=== PATIENT | female | born 1940 | race Caucasian/White ===

== ENCOUNTER 2016-06-20 12:05 | Emergency (ER) | payer OTHER ==
--- NOTE | 2016-06-20 12:44 | PROVIDER DOCUMENTATION ---
HPI-Syncope/Dizziness - General Chief Complaint: Fall Stated Complaint: Fall Time Seen by Provider: 06/20/16 12:10 Source: patient Allergies/Adverse Reactions: Patient Allergies Allergy/AdvReac Type Severity Reaction Status Date / Time No Known Allergies Allergy Verified 06/20/16 12:13 Home Medications: Home Medication List Medication Instructions Recorded Confirmed Last Taken Type Esomeprazole Magnesium [Nexium 1 cap PO DAILY 11/11/15 11/11/15 Unknown History 24Hr] Estrogens, Conjugated [Premarin] 0.45 mg PO DAILY 11/11/15 11/11/15 Unknown History Perphenazine/Amitriptyline HCl 1 tab PO BID 11/11/15 11/11/15 Unknown History [Perphen-Amitrip 2 mg-25 mg Tab] Ranolazine E.r. [Ranexa] 500 mg PO BID 11/11/15 11/11/15 Unknown History SIMVAstatin [Zocor] 40 mg PO DAILY 11/11/15 11/11/15 Unknown History Tramadol [Ultram] 50 mg PO Q8H PRN PRN #30 tablet 11/11/15 Unknown Rx Venlafaxine E.r. [Effexor Xr] 37.5 mg PO BID 11/11/15 11/11/15 Unknown History Zolpidem Tartrate [Zolpidem 12.5 mg PO QHS 11/11/15 11/11/15 Unknown History Tartrate ER] Ciprofloxacin [Cipro] 250 mg PO BID #20 tablet 11/17/15 Unknown Rx Phenazopyridine HCl [Pyridium] 100 mg PO BID #20 tablet 11/17/15 Unknown Rx Meloxicam [Mobic] 15 mg PO DAILY PRN #30 tablet 11/20/15 Unknown Rx Tramadol HCl [Ultram] 50 mg PO Q6H PRN PRN #20 tablet 11/20/15 Unknown Rx - History of Present Illness-Syncope/Dizzy Nature of Presenting Problem: Pt is a 76 yof who came to the ED with a cc of falling. Pt reports she drove to the bank and when she got inside she started feeling dizzy. Pt reports she fell down and tried to grab something but was unable to. Pt reports they had to help her off of the floor. Pt reports that she has fell three times this week with the same starting symptom: dizziness. Pt denies that she is in any pain. Prior Episodes: reports: recent history Onset/Duration: reports: just prior to arrival Timing: reports: still present Position/Activity at time of episode: reports: standing Symptoms prior to episode: reports: lightheaded Context: reports: collapsed Loss of Consciousness: no loss of consciousness Current Symptoms: reports: dizzy Similar symptoms previously: reports: workup for same problem Recently Seen Here or By Another Healthcare Provider: Yes - Dizziness Severity in ED: reports: mild Dizziness Related Current/Associated Symptoms: reports: dizzy, syncope Any recent trauma/injury?: reports: minor Patient usually:: reports: uses a cane Review of Systems - Adult - REVIEW OF SYSTEMS - ADULT Constitutional: denies: chills, fever Eyes: denies: decreased vision, double vision Ears, Nose, Mouth & Throat: reports: no symptoms reported Cardiovascular: reports: no symptoms reported Respiratory: reports: no symptoms reported Gastrointestinal: reports: no symptoms reported Genitourinary: reports: no symptoms reported Musculoskeletal: denies: bone pain, joint pain Integumentary: reports: other (left elbow abrasion) Neurological: reports: syncope. denies: numbness, seizure Psychiatric: reports: no symptoms reported Endocrine: reports: no symptoms reported Hematologic/Lymphatic: reports: no symptoms reported Allergic/Immunologic: reports: no symptoms reported All Other Systems: Reviewed and Negative Past History - Adult - PAST MEDICAL HISTORY-ADULT Review of Records: reports: Old Records Reviewed, Nursing Assessment Review Major Childhood Illnesses: reports: denies history Cardiovascular: reports: hyperlipidemia, other (stents) Respiratory: reports: denies history Gastrointestinal: reports: GERD, IBS Obstetrical/Gynecological: reports: denies history Genitourinary: reports: denies history Musculoskeletal: reports: denies history Neurological: reports: denies history Psychiatric: reports: depression Endocrine/Immune: reports: denies history Other Conditions: reports: denies history - PRIOR SURGERIES/PROCEDURES Surgical/Procedure History: reports: hysterectomy, other (stents ) - PRIOR HOSPITALIZATIONS Prior Hospitalizations: reports: for other non-related - IMMUNIZATION STATUS Childhood Immunizations: See Nurse Assessment Flu Vaccine: See Nurse Assessment - FAMILY HISTORY Family History: reviewed, not pertinent Physical Exam-General - PHYSICAL EXAM-ADULT Initial Vital Signs Reviewed: Yes - CONSTITUTIONAL General Appearance: alert, no apparent distress - EYES Eyes: PERRL/EOMI, pink conjunctivae, fundi clear, no AV nicking - HEAD, EARS, NOSE, MOUTH & THROAT HENMT: normocephalic/atraumatic, moist mucous membranes, normal ENT inspection, TMs normal, pharynx normal - NECK Neck: non-tender, full range of motion - RESPIRATORY Respiratory: chest non-tender, lungs clear, normal breath sounds, no pleuratic chest pain, no respiratory distress, no accessory muscle use - CARDIOVASCULAR Cardiovascular: normal peripheral pulses, regular rate, rhythm - GASTROINTESTINAL (ABDOMEN) Abdominal Exam: normal bowel sounds, non tender, soft - MUSCULOSKELETAL Back Exam: normal inspection Extremity: normal range of motion, non-tender - SKIN Integumentary: normal color, normal turgor, warm/dry, other (left elbow skin abrasion) - NEUROLOGIC Neurologic: grossly normal - PSYCHIATRIC Psych/Mental Status: normal mood/affect, normal thought content, normal thought process, oriented x 3 Progress - PLAN OF CARE/RESULTS Progress/Plan/Lab Results: Vital Signs - 24 hr 06/20/16 12:06 Temperature 98.0 F Pulse Rate 71 Respiratory 16 Rate Blood Pressure 109/64 O2 Sat by Pulse 97 Oximetry - XRAY 1 XRAY Study: Elbow XRAY Interpretation: no fracture no dislocation 2 XRAY Study: Chest (no acute abnormality) - CT/MRI 1 CT Study: Head (atrophy and chronic microvascular disease. no acute disease.) Departure - Departure Time of Disposition Order: 14:44 DIAGNOSIS: Syncope Qualifiers: Syncope type: unspecified Qualified Code(s): R55 - Syncope and collapse Fall Qualifiers: Encounter type: sequela Qualified Code(s): W19.XXXS - Unspecified fall, sequela Disposition: HOME 01 Certified Medical Emergency: Emergent Condition: Stable Additional Instructions: ED Follow Up Instructions: You have been treated by a care provider in the Emergency Department. These instructions are being provided to you so you can have an understanding of how to care for yourself upon discharge. Upon discharge from the Emergency Department, you are responsible for making arrangements for follow-up care by a physician of your choice. Take all prescribed medications as directed. Return to the Emergency Department immediately for any new or worsening symptoms. You may call the Physician Referral phone number at [phone] to obtain a list of Physicians who are taking new patients. Attestation - Scribe Verification/Attestation Scribe:: Honey Arenas Acting as Scribe for:: Pam Olsen Scribe documention review:: This chart was documented by a scribe and accurately reflects the service the provider performed and the decisions made by the provider.
--- NOTE | 2016-06-20 13:19 | Diag Imaging Result Document ---
PROCEDURE NAME: HEAD W/O CONTRAST - 06/20/[address], 06/20/2016: A CT dose reduction protocol was used. COMPARISON: None. FINDINGS: There is moderate diffuse cerebral atrophy. There is some patchy periventricular white matter lucency most compatible with chronic microvascular disease. No intracranial mass or hemorrhage. The skull is intact. The sinuses, mastoids, and middle ears are clear. IMPRESSION: Atrophy and chronic microvascular disease. No acute disease. [facility]
[2016-06-20 13:26] LABS: MANUAL DIFF NEEDED? NO
[2016-06-20 13:34] LABS: BASO% 0.2 % (0.0-0.8); EOS# 0.19 X1000 (0.0-0.7); EOS% 2.2 % (0.0-10.0); HEMATOCRIT 35.5 % (37.0-47.0); HEMOGLOBIN 11.3 g/dL (12.0-16.0); IMM GRAN# 0.02 X1000 (0.0-0.04); IMM GRAN% 0.2 % (0.0-0.5); LYMPH# 2.86 X1000 (1.2-3.4); LYMPH% 33.7 % (20.5-51.1); MCH 32.1 PG (27-31); MCHC 31.8 g/dL (33-37); MCV 100.9 FL (81-99); MONO# 0.48 X1000 (0.11-0.59); MONO% 5.7 % (1.7-9.3); MPV 10.2 FL (7.4-10.4); PLT 292 X1000 (130-400); RBC 3.52 XMIL (4.2-5.4)
--- NOTE | 2016-06-20 13:41 | Diag Imaging Result Document ---
PROCEDURE NAME: ELBOW COMPLETE LEFT - 06/20/2016 LEFT ELBOW, THREE VIEWS: FINDINGS: No fracture. No dislocation. IMPRESSION: No acute bony injury.
--- NOTE | 2016-06-20 13:41 | Diag Imaging Result Document ---
PROCEDURE NAME: CHEST-1 VIEW - 06/20/2016 CHEST, SINGLE VIEW: FINDINGS: The lungs are well expanded. The heart is not enlarged. The vessels are not distended. No consolidation. No pleural effusions identified. IMPRESSION: No acute abnormality.
[2016-06-20 13:47] LABS: BE -0.3 mmoll (-3.0-3.0); BLOOD TYPE ARTERIAL; DRAW SITE L RADIAL; METHB 1.1 % (0.0-1.5); O2(CT) 14.4 mL/dL (15.0-23.0); PCO2(98.6) 37 mmHg (35-45); PO2(98.6) 74 mmHg (60-100); SAMPLE BLOOD; SAO2 97.6 % (95.0-100.0); THB 11.7 g/dL (11.5-17.4); pH(98.6) 7.42 (7.35-7.45)
[2016-06-20 13:53] LABS: MODALITY ROOM AIR
[2016-06-20 13:54] LABS: ALLEN TEST YES
--- NOTE | 2016-06-20 13:55 | EKG Report ---
Test Performed on : 06/20/2016 1:45:27 PM Test Reason : AMS Blood Pressure : / mmHG Vent. Rate : 069 BPM Atrial Rate : 069 BPM P-R Int : 154 ms QRS Dur : 092 ms QT Int : 426 ms P-R-T Axes : 059 074 072 degrees QTc Int : 456 ms Normal sinus rhythm. Normal ECG No previous ECGs available Unconfirmed Result
[2016-06-20 13:59] LABS: AGAP 11; ALBUMIN 3.8 g/dL (3.5-5.0); ALKALINE PHOSPHATASE 59 U/L (32-104); BUN 15 mg/dL (8-22); CALCIUM 9.3 mg/dL (8.8-10.2); CHLORIDE 98 mmol/L (98-107); CK PROFILE 50 U/L (24-173); COSMO 266; GOT 17 U/L (10-30); GPT 12 U/L (10-36); POTASSIUM 4.4 mmol/L (3.5-5.1); SODIUM 133 mmol/L (136-145); TCO2 24 mmol/L (25-35); TOTAL BILIRUBIN < 0.15 mg/dL (0.20-1.00); TOTAL PROTEIN 6.3 g/dL (6.3-8.3)
[2016-06-20 13:59] LABS: URINE CULTURE PL NEEDED? NO; URINE SOURCE CLEAN CATCH
[2016-06-20 14:01] LABS: UR AMPHETAMINES QUAL NONE DETECTED (NONE DETECT); UR BARBITUATES QUAL NONE DETECTED (NONE DETECT); UR BENZODIAZEPIN QUAL NONE DETECTED (NONE DETECT); UR CANNABINOIDS QUAL NONE DETECTED (NONE DETECT); UR COCAINE QUAL NONE DETECTED (NONE DETECT); UR MDMA QUAL NONE DETECTED (NONE DETECT); UR METHADONE QUAL NONE DETECTED (NONE DETECT); UR METHAMPHETAMINE QUAL NONE DETECTED (NONE DETECT); UR OPIATES QUAL NONE DETECTED (NONE DETECT); UR OXYCODONE QUAL NONE DETECTED (NONE DETECT); UR PCP QUAL NONE DETECTED (NONE DETECT); UR TCA QUAL PRESUMPTIVE POSITIVE (NONE DETECT)
[2016-06-20 14:06] LABS: URINE WBC <10 /HPF (<10)
[2016-06-20 14:07] LABS: BILIRUBIN URINE NEGATIVE (NEGATIVE); BLOOD URINE NEGATIVE (NEGATIVE); CLARITY CLEAR (CLEAR); COLOR YELLOW; GLUCOSE URINE NEGATIVE (NEGATIVE); LEUKOCYTES URINE 1+ (NEGATIVE); NITRITE URINE NEGATIVE (NEGATIVE); PROTEIN URINE TRACE mg/dL (NEGATIVE); URINE EPITHELIAL CELLS <10 /HPF (<10); UROBILINOGEN URINE NORMAL
[2016-06-20 14:08] LABS: INR 1.02 (0.86-1.15); PROTIME 13.7 Seconds (12.1-15.5)
[2016-06-20 14:09] LABS: PTT PL 26.8 Seconds (22.6-43.9)
[2016-06-20 14:45] VITALS: BP 132/76
[2016-06-20] MEDS ORDERED: BOOSTRIX VACCINE IM ONE (14:45)
== END 2016-06-20 15:12 | disposition home or self-care (01) ==
LOC: P.ED 12:05
DX: R55 Syncope and collapse (principal); W19.XXXA Unspecified fall, initial encounter; R42 Dizziness and giddiness; S50.312A Abrasion of left elbow, initial encounter; E78.5 Hyperlipidemia, unspecified; K21.9 Gastro-esophageal reflux disease without esophagitis; Z95.5 Presence of coronary angioplasty implant and graft; F32.9 Major depressive disorder, single episode, unspecified; Z79.899 Other long term (current) drug therapy; Z23 Encounter for immunization
CPT/HCPCS: 70450; 71010; 80053; 80305; 81001; 82550; 82805; 82948; 83605; 83735; 83880; 84484; 85025; 85610; 85730; 90471; 90715; 93005; G0480; 80320

== ENCOUNTER 2019-07-23 17:15 | Inpatient (IN) ==
[2019-07-23] MEDS ORDERED: NS 1,000 ML IV ONE ×2 (17:22→20:06)
--- NOTE | 2019-07-23 17:22 | PROVIDER DOCUMENTATION ---
HPI-Respiratory General - General Chief Complaint: Shortness of Breath Stated Complaint: Difficulty Breathing Time Seen by Provider: 07/23/19 17:15 Source: patient Allergies/Adverse Reactions: Patient Allergies Allergy/AdvReac Type Severity Reaction Status Date / Time No Known Allergies Allergy Verified 02/11/19 14:38 Home Medications: Home Medication List Medication Instructions Recorded Confirmed Last Taken Type Ranolazine E.r. [Ranexa] 500 mg PO BID 11/11/15 02/11/19 06/07/17 08:00 History SIMVAstatin [Zocor] 40 mg PO DAILY 11/11/15 02/11/19 06/06/17 History Zolpidem Tartrate [Zolpidem 12.5 mg PO QHS #30 tab.mphase 03/01/17 02/11/19 06/06/17 Rx Tartrate ER] Lorazepam 0.5 mg PO BID 06/05/17 02/11/19 06/06/17 History Perphenazine/Amitriptyline HCl 1 tab PO BID 06/05/17 02/11/19 06/07/17 08:00 History [Perphen-Amitrip 2 mg-25 mg Tab] Venlafaxine [Effexor] 37.5 mg PO BID 06/05/17 02/11/19 06/07/17 08:00 History Tobramycin/Dexameth Oph Susp 1 drp RIGHT EYE Q6HR #1 bottle 02/11/19 Unknown Rx [Tobradex Oph Susp] - History of Present Illness-Resp Nature of Presenting Problem: 79 YOF with PMH of IA x 2 presents with c/o SOB/difficulty breathing since this morning it has stayed the same. It is not associated with any chest pain. She denies sick contacts, fever, cough, n/v/d. She has not been outside her home in year. Denies swelling in legs. She does have increased WOB and mild distress. Quality of Pain: reports: none Severity in ED: reports: severe Onset/Duration: reports: this morning Timing: reports: still present Cough Quality/Degree: reports: mild Current Respiratory Medication Therapy: Initiated none Modifying Factors: worse with: exertion Associated Symptoms: reports: shortness of breath, short of breath Similar Symptoms Previously?: Yes Recently seen or treated by another doctor?: No Review of Systems - Adult - REVIEW OF SYSTEMS - ADULT ROS:: limited per condition Constitutional: reports: no symptoms reported. denies: chills, fever Eyes: reports: no symptoms reported. denies: blurred vision, double vision, eye pain Ears, Nose, Mouth & Throat: reports: no symptoms reported. denies: sinus problem, mouth/dental pain, mouth swelling Cardiovascular: reports: no symptoms reported. denies: chest pain, edema, heart murmur, irregular heart rate, PND Respiratory: reports: see HPI, shortness of breath. denies: no symptoms reporte d, chronic cough, cough, dyspnea on exertion, excessive sputum production, hemoptysis, pleurisy, wheezing, other Gastrointestinal: reports: no symptoms reported. denies: see HPI, abdominal pain, hematemesis, constipation, diarrhea, difficulty swallowing, frequent heartburn, nausea, poor appetite, rectal bleeding, vomiting, other Genitourinary: reports: no symptoms reported. denies: see HPI, dysuria, discharge, frequency, flank pain, frequent UTI's, hematuria, hesitency, incontinence, urinary retention, urgency, other Musculoskeletal: reports: no symptoms reported. denies: see HPI, bone pain, back pain, frequent leg cramps, joint pain, joint swelling, muscle aches, muscle weakness, neck pain, other Integumentary: reports: no symptoms reported. denies: see HPI, hives, hair loss, itching, mole changes, nail changes, rash, skin sores/ulcer, skin thickening, other Neurological: reports: no symptoms reported. denies: see HPI, ataxia, dizziness/vertigo, headache/migraines, loss of balance, numbness, paresthesia, seizure, slurred speech, syncope, tremors, other Psychiatric: reports: no symptoms reported. denies: see HPI, anxiety, anti- depressant use, alcohol/drug dependence, depression, emotional problems, insomnia, panic attacks, suicidal thoughts, other Endocrine: reports: no symptoms reported. denies: see HPI, change in skin pigment, excessive sweating, goiter, cold intolerance, heat intolerance, inc reased hunger, increased thirst, polyuria, other Hematologic/Lymphatic: reports: no symptoms reported. denies: see HPI, blood clots, easy bruising, low blood count, lymphedema, prolonged bleeding, swollen lymph nodes, transfusions, other Allergic/Immunologic: reports: no symptoms reported. denies: see HPI, allergic reactions, allergic rhinitis, asthma, eczema, food allergy, frequent infections, hay fever, hives, positive PPD, urticaria, other Past History - Adult - PAST MEDICAL HISTORY-ADULT Review of Records: reports: Nursing Assessment Review, Social history reviewed & non-contributory. Major Childhood Illnesses: reports: denies history Cardiovascular: reports: denies history Respiratory: reports: denies history Gastrointestinal: reports: denies history Obstetrical/Gynecological: reports: denies history Genitourinary: reports: denies history Musculoskeletal: reports: denies history Neurological: reports: denies history Psychiatric: reports: depression Endocrine/Immune: reports: denies history Other Conditions: reports: denies history - PRIOR SURGERIES/PROCEDURES Surgical/Procedure History: reports: hysterectomy, other (stents ) - PRIOR HOSPITALIZATIONS Prior Hospitalizations: reports: for other non-related - IMMUNIZATION STATUS Childhood Immunizations: See Nurse Assessment Flu Vaccine: See Nurse Assessment - FAMILY HISTORY Family History: reviewed, not pertinent Physical Exam-General - PHYSICAL EXAM-ADULT Initial Vital Signs Reviewed: Yes - CONSTITUTIONAL General Appearance: alert, moderate distress - EYES Eyes: PERRL/EOMI, pink conjunctivae - HEAD, EARS, NOSE, MOUTH & THROAT HENMT: normocephalic/atraumatic, moist mucous membranes, normal ENT inspection - NECK Neck: non-tender, full range of motion, supple - RESPIRATORY Respiratory: chest non-tender, lungs clear, normal breath sounds, respiratory distress - CARDIOVASCULAR Cardiovascular: normal peripheral pulses, regular rate, rhythm, no edema, no gallop, no JVD - GASTROINTESTINAL (ABDOMEN) Abdominal Exam: normal bowel sounds, non tender, soft, no organomegaly, no pulsatile mass - LYMPHATIC Lymphatic: no adenopathy - MUSCULOSKELETAL Back Exam: normal inspection, no CVA tenderness, no vertebral tenderness Extremity: normal range of motion, non-tender Peripheral Pulses: radial (R): 2+, radial (L): 2+ - SKIN Integumentary: normal color, normal turgor, warm/dry - NEUROLOGIC Neurologic: grossly normal - PSYCHIATRIC Psych/Mental Status: normal mood/affect, oriented x 3 - HEART Score HEART Score: History: Slightly Suspicious HEART Score: ECG: Non-Specific Repolarization Disturbance/LBBB/PM HEART Score: Age: > or = 65 Years HEART Score: Risk Factors for Atherosclerotic Disease: > or = 3 Risk Factors or History of Atherosclerotic Disease Progress - PLAN OF CARE/RESULTS Progress/Plan/Lab Results: Vital Signs - 8 hr 07/23/19 17:23 07/23/19 17:45 Temperature 97.7 F Pulse Rate 95 H 102 H Respiratory Rate 23 26 H Blood Pressure 132/80 O2 Sat by Pulse Oximetry 99 Laboratory Results - last 24 hr 07/23/19 07/23/19 07/23/19 17:35 17:35 17:35 WBC RBC Hgb Hct MCV MCH MCHC RDW Std Deviation Plt Count MPV Immature Gran % (Auto) Neut % (Auto) Lymph % (Auto) [place] % (Auto) Eos % (Auto) Baso % (Auto) Immature Gran # (Auto) Neut # (Auto) Lymph # (Auto) [place] # (Auto) Eos # (Auto) Baso # (Auto) D-Dimer, Quantitative 0.75 H Sodium 138 Potassium 3.9 Chloride 100 Carbon Dioxide 22 L Anion Gap 16 BUN 10 Creatinine 0.8 Estimated GFR/1.73 m2 > 60 BUN/Creatinine Ratio 13 Glucose 108 H Calculated Osmolality 275 Calcium 10.7 H Total Bilirubin < 0.15 L AST 18 ALT 12 Alkaline Phosphatase 79 Troponin T High Sens 20 H Obd-G-Ltpnkiqfkjv Pept Total Protein 6.6 Albumin 4.1 Globulin 3.0 Albumin/Globulin Ratio 2.0 Plasma Lactate 07/23/19 07/23/19 07/23/19 17:35 17:35 17:35 WBC 7.76 RBC 3.95 L Hgb 13.1 Hct 40.2 MCV 101.8 H MCH 33.2 H MCHC 32.6 L RDW Std Deviation 13.7 Plt Count 267 MPV 10.8 H Immature Gran % (Auto) 0.1 Neut % (Auto) 53.9 Lymph % (Auto) 36.9 [place] % (Auto) 6.7 Eos % (Auto) 2.1 Baso % (Auto) 0.3 Immature Gran # (Auto) 0.01 Neut # (Auto) 4.19 Lymph # (Auto) 2.86 [place] # (Auto) 0.52 Eos # (Auto) 0.16 Baso # (Auto) 0.02 D-Dimer, Quantitative Sodium Potassium Chloride Carbon Dioxide Anion Gap BUN Creatinine Estimated GFR/1.73 m2 BUN/Creatinine Ratio Glucose Calculated Osmolality Calcium Total Bilirubin AST ALT Alkaline Phosphatase Troponin T High Sens Qrl-T-Bnycwzeifnp Pept 135 Total Protein Albumin Globulin Albumin/Globulin Ratio Plasma Lactate 1.8 Orders Category Date Time Status Cardiac Monitoring DIRECTED Care 07/23/19 17:16 Active Monitor Blood Pressure ORDERED Care 07/23/19 17:17 Active NEWS Score 2-4:Order NEWS Lactate Series NOW Care 07/23/19 17:27 Active Saline Loc NOW Care 07/23/19 17:14 Active CHEST-PORTABLE [RAD] Stat Exams 07/23/19 17:14 Completed CTA [CT ANGIOGRM PULMONARY ARTERIES] [CT] Stat Exams 07/23/19 18:13 Completed BC [BLOOD CULTURE] [BLDCUL] Stat Lab 07/23/19 18:01 Ordered BNP [PRO B-NATRIURETIC PEPTIDE] Stat Lab 07/23/19 17:35 Completed CBC WITH ELECTRONIC DIFF [HEME] Stat Lab 07/23/19 17:35 Completed COMPREHENSIVE METABOLIC PANEL [CHEM] Stat Lab 07/23/19 17:35 Completed D-DIMER [COAG] Stat Lab 07/23/19 17:35 Completed LACTATE, PLASMA [CHEM] Stat Lab 07/23/19 17:35 Completed TROPONIN T HIGH SENSITIVITY Stat Lab 07/23/19 17:35 Completed 0.9% Sodium Chloride Inj [Ns] 1,000 ml Med 07/23/19 17:22 Discontinued IV 999 mls/hr Albuterol 2.5MG/Ipratrop 0.5MG [Duoneb (A & A)] Med 07/23/19 17:23 Discontinued 3 ml INH NOW ONE Azithromycin 500 mg/Ns [Zithromax 500 mg/Ns] Med 07/23/19 19:41 Active 500 mg in 250 ml IV NOW CefTRIAXONE [Rocephin] 1 gm Med 07/23/19 18:14 Discontinued 0.9% Sodium Chloride Inj [Ns] 50 ml IV NOW Aerosol Treatments Routine Oth 07/23/19 17:23 Completed Aerosol Treatments Stat Oth 07/23/19 17:23 Completed Oxygen Device Stat Oth 07/23/19 17:16 Active Pulse Oximetry Stat Oth 07/23/19 17:16 Active EKG [EKG] Stat Ther 07/23/19 17:14 Draft Result Diagrams: 07/23/19 17:35 07/23/19 17:35 - REASSESSMENT Reassessment #1 Time Reassessed: 20:15 Status: unchanged (I ALSO SAW AND EXAMINED PT, DISCUSSED HER ADMISSION FOR PNEUMONIA- Todd HUGHES MD) - XRAY 1 XRAY Study: Chest Impression: See EMR Report (EXAM: CHEST-PORTABLE INDICATION: SOB TECHNIQUE: One view COMPARISON: 04/09/2017 FINDINGS: There is ill-defined focal infiltrate in the left midlung zone and possibly at the left lung base at the costophrenic angle as well. There are a few calcified granulomata at the left lung apex that are stable. The right lung appears grossly clear. There is no discrete pleural fluid collection or pneumothorax. The cardiomediastinal silhouette and central vasculature are grossly unremarkable. IMPRESSION: Ill- defined focal consolidation in the left midlung zone and possibly at the lateral left lung base. Electronically signed by Sukhdeep Ku 07/23/2019 6:03 PM 07/23/191802 Interpreting Physician: Sukhdeep Ku MD Dictated Date/Time: 07/23/191801 cc: Argenis Gonzáles;) - CT/MRI 1 CT Study: Abdomen, Pelvis Impression: See EMR Report (EXAM: CT ANGIOGRM PULMONARY ARTERIES INDICATION: SOB, + D-Dimer TECHNIQUE: This exam was performed using automated exposure control, adjustment of mA or kV according to patient size, and/or use of i terative reconstruction technique. COMPARISON: None. FINDINGS: There is a fair amount of respiratory motion artifact but there is no evidence of pulmonary embolism as imaged. There is extensive aortic atherosclerotic disease with ulcerated soft plaques and calcifications. There is no evidence of aortic aneurysm. No aortic dissection is appreciated. There is no cardiomegaly. There are a few calcified mediastinal and hilar lymph nodes indicating prior granulomatous disease. Otherwise, there is no evidence of significant mediastinal or hilar lymphadenopathy. There is a small focal airspace co nsolidation indicating focal pneumonia in the lingula that was also seen on chest radiograph. There is mild bibasilar atelectasis but no other infiltrates are appreciated there is biapical pleural and parenchymal scarring. There is no pleural fluid collection and no pneumothorax. Limited views of the upper abdomen are essentially unremarkable. IMPRESSION: 1.Focal airspace consolidation involving the lingula consistent with pneumonia. 2.Extensive aortic atherosclerotic disease. 3.No evidence of pulmonary embolism. Electronically signed by Sukhdeep Ku 07/23/2019 7:16 PM 04/21/20 1916 Interpreting Physician: Sukhdeep Ku MD Dictated Date/Time: 07/23/19 191 cc: Argenis Gonzáles; None,PCP) - CONSULTS/PCP/HOSPITALIST Notification #1 *Consult/PCP/Hospitalist*: Dr. resendez Time Discussed: 20:04 Consult Disposition: Admit (Add solumedrol 40mg Q8H continue abx and nebs, no need for covid testing) Departure - Departure Date of Disposition Decision: 07/23/19 Time of Disposition Decision: 20:04 DIAGNOSIS: Pneumonia, COPD (chronic obstructive pulmonary disease) Disposition: ADMITTED INPATIENT 09 Certified Medical Emergency: Emergent Condition: Fair Referrals and Follow-Ups: None,PCP [Primary Care Provider] - - Critical Care Note This patient required my direct & personal management of CC.: No Attestation - Physician/ HERLINDA Attestation Patient care was provided by Advanced Practice Provider:: Yes Advanced Practice Provider:: Argenis Gonzáles Advanced Practice Provider documentation review:: The Mid-level provider documentation, treatment plan and medical decision making was reviewed by the physician who agrees with all treatment and medical decision making by the MLP. The physician spent face to face time with patient:: Yes (Dr. Hughes) Advanced Practice Provider documentation review:: Supervising physician onsite and consulted in the evaluation and care of this patient. The physician did have a face to face encounter with the patient.
[2019-07-23] MEDS ORDERED: DUONEB (A & A) INH ONE (17:23)
--- NOTE | 2019-07-23 17:27 | EKG Report ---
Test Performed on : 07/23/2019 5:20:14 PM Test Reason : SOb Blood Pressure : / mmHG Vent. Rate : 094 BPM Atrial Rate : 094 BPM P-R Int : 110 ms QRS Dur : 096 ms QT Int : 356 ms P-R-T Axes : 070 056 046 degrees QTc Int : 445 ms Sinus rhythm. with short MS with premature atrial complexes. Possible Inferior infarct (cited on or before 05-JUN-2017) Abnormal ECG When compared with ECG of 05-JUN-2017 13:03, premature atrial complexes. are now present Unconfirmed Result
[2019-07-23 17:58] LABS: BASO# 0.02 X1000 (0.0-0.2); BASO% 0.3 % (0.0-0.8); EOS# 0.16 X1000 (0.0-0.7); EOS% 2.1 % (0.0-10.0); HEMATOCRIT 40.2 % (37.0-47.0); HEMOGLOBIN 13.1 g/dL (12.0-16.0); IMM GRAN# 0.01 X1000 (0.0-0.04); IMM GRAN% 0.1 % (0.0-0.5); LYMPH# 2.86 X1000 (1.2-3.4); LYMPH% 36.9 % (20.5-51.1); MCH 33.2 PG (27-31); MCHC 32.6 g/dL (33-37); MCV 101.8 FL (81-99); MONO# 0.52 X1000 (0.11-0.59); MONO% 6.7 % (1.7-9.3); MPV 10.8 FL (7.4-10.4); NEUT# 4.19 X1000 (1.4-6.5); NEUT% 53.9 % (42.2-75.2); PLT 267 X1000 (130-400); RBC 3.95 XMIL (4.2-5.4); RDW 13.7 % (11.5-14.5); WBC 7.76 X1000 (4.8-10.8)
--- NOTE | 2019-07-23 18:06 | Diag Imaging Result Doc PS360 ---
EXAM: CHEST-PORTABLE INDICATION: SOB TECHNIQUE: One view COMPARISON: 04/09/2017 FINDINGS: There is ill-defined focal infiltrate in the left midlung zone and possibly at the left lung base at the costophrenic angle as well. There are a few calcified granulomata at the left lung apex that are stable. The right lung appears grossly clear. There is no discrete pleural fluid collection or pneumothorax. The cardiomediastinal silhouette and central vasculature are grossly unremarkable. IMPRESSION: Ill-defined focal consolidation in the left midlung zone and possibly at the lateral left lung base. Electronically signed by Sukhdeep Ku 07/23/2019 6:03 PM
[2019-07-23] MEDS ORDERED: ROCEPHIN 1 GM in NS 50 ML IV ONE (18:14)
[2019-07-23 18:17] LABS: AGAP 16; ALBUMIN 4.1 g/dL (3.5-5.0); ALKALINE PHOSPHATASE 79 U/L (32-104); BUN 10 mg/dL (8-22); CALCIUM 10.7 mg/dL (8.8-10.2); CHLORIDE 100 mmol/L (98-107); COSMO 275; CREATININE 0.8 mg/dL (0.5-0.9); ESTIMATED GFR > 60; GLUCOSE 108 mg/dL (70-104); GOT 18 U/L (10-30); GPT 12 U/L (10-36); POTASSIUM 3.9 mmol/L (3.5-5.1); SODIUM 138 mmol/L (136-145); TCO2 22 mmol/L (25-35); TOTAL BILIRUBIN < 0.15 mg/dL (0.20-1.00); TOTAL PROTEIN 6.6 g/dL (6.3-8.3)
--- NOTE | 2019-07-23 19:19 | Diag Imaging Result Doc PS360 ---
EXAM: CT ANGIOGRM PULMONARY ARTERIES INDICATION: SOB, + D-Dimer TECHNIQUE: This exam was performed using automated exposure control, adjustment of mA or kV according to patient size, and/or use of iterative reconstruction technique. COMPARISON: None. FINDINGS: There is a fair amount of respiratory motion artifact but there is no evidence of pulmonary embolism as imaged. There is extensive aortic atherosclerotic disease with ulcerated soft plaques and calcifications. There is no evidence of aortic aneurysm. No aortic dissection is appreciated. There is no cardiomegaly. There are a few calcified mediastinal and hilar lymph nodes indicating prior granulomatous disease. Otherwise, there is no evidence of significant mediastinal or hilar lymphadenopathy. There is a small focal airspace consolidation indicating focal pneumonia in the lingula that was also seen on chest radiograph. There is mild bibasilar atelectasis but no other infiltrates are appreciated there is biapical pleural and parenchymal scarring. There is no pleural fluid collection and no pneumothorax. Limited views of the upper abdomen are essentially unremarkable. IMPRESSION: 1.Focal airspace consolidation involving the lingula consistent with pneumonia. 2.Extensive aortic atherosclerotic disease. 3.No evidence of pulmonary embolism. Electronically signed by Sukhdeep Ku 07/23/2019 7:16 PM
[2019-07-23] MEDS ORDERED: ZITHROMAX 500 MG/NS 500 MG/250 ML IVPB IV ONE ×2 (19:41→22:03)
[2019-07-23] MEDS ORDERED: TYLENOL PO PRN (20:06)
[2019-07-23] MEDS: SOLU-MEDROL IV SCH (22:03)
[2019-07-23] MEDS: DUONEB (A & A) INH SCH ×2 (22:55→23:30)
[2019-07-24] MEDS: DUONEB (A & A) INH SCH ×6 (03:02→23:57)
[2019-07-24] MEDS: SOLU-MEDROL IV SCH ×3 (06:03→22:00)
[2019-07-24 06:30] LABS: AGAP 15; BUN 8 mg/dL (8-22); CALCIUM 9.6 mg/dL (8.8-10.2); CHLORIDE 105 mmol/L (98-107); COSMO 282; CREATININE 0.8 mg/dL (0.5-0.9); ESTIMATED GFR > 60; GLUCOSE 168 mg/dL (70-104); POTASSIUM 3.8 mmol/L (3.5-5.1); SODIUM 140 mmol/L (136-145); TCO2 20 mmol/L (25-35)
[2019-07-24 07:09] LABS: HEMATOCRIT 35.1 % (37.0-47.0); HEMOGLOBIN 10.9 g/dL (12.0-16.0); IMM GRAN# 0.01 X1000 (0.0-0.04); IMM GRAN% 0.2 % (0.0-0.5); LYMPH# 0.58 X1000 (1.2-3.4); LYMPH% 11.2 % (20.5-51.1); MCH 31.9 PG (27-31); MCHC 31.1 g/dL (33-37); MCV 102.6 FL (81-99); MONO% 1.9 % (1.7-9.3); MPV 10.1 FL (7.4-10.4); NEUT# 4.47 X1000 (1.4-6.5); NEUT% 86.7 % (42.2-75.2); PLT 226 X1000 (130-400); RBC 3.42 XMIL (4.2-5.4); RDW 13.9 % (11.5-14.5); WBC 5.16 X1000 (4.8-10.8)
[2019-07-24 07:10] LABS: LYMPHS 10 % (21-51); MONO 2 % (1-9); SEGS 88 % (42-75)
--- NOTE | 2019-07-24 11:29 | Diag Imaging Result Doc PS360 ---
EXAM: CHEST-1 VIEW 07/24/2019 HISTORY: Sepsis protocol TECHNIQUE: AP portable at 1214 COMMENT: There is blunting of the left costophrenic angle. There are granulomata in the left apex. The heart size and primary vascularity are within normal limits. Compared to 07/23/2019 there has been no significant change. IMPRESSION: Stable chest. Electronically signed by Freeman Chaves 07/24/2019 11:27 AM
[2019-07-24 11:49] LABS: URINE SOURCE CLEAN CATCH
[2019-07-24 11:51] LABS: HEMOGLOBIN 10.6 g/dL (12.0-16.0); IMM GRAN# 0.01 X1000 (0.0-0.04); IMM GRAN% 0.1 % (0.0-0.5); LYMPH# 0.57 X1000 (1.2-3.4); LYMPH% 8.4 % (20.5-51.1); MCH 31.8 PG (27-31); MCHC 31.2 g/dL (33-37); MCV 102.1 FL (81-99); MONO# 0.09 X1000 (0.11-0.59); MONO% 1.3 % (1.7-9.3); MPV 10.5 FL (7.4-10.4); NEUT# 6.09 X1000 (1.4-6.5); NEUT% 90.2 % (42.2-75.2); PLT 234 X1000 (130-400); RBC 3.33 XMIL (4.2-5.4); WBC 6.76 X1000 (4.8-10.8)
[2019-07-24 11:52] LABS: BILIRUBIN URINE NEGATIVE (NEGATIVE); BLOOD URINE SMALL (NEGATIVE); COLOR YELLOW; GLUCOSE URINE NEGATIVE (NEGATIVE); KETONE URINE NEGATIVE (NEGATIVE); LEUKOCYTES URINE NEGATIVE (NEGATIVE); NITRITE URINE NEGATIVE (NEGATIVE); PH URINE 6.5; PROTEIN URINE NEGATIVE (NEGATIVE); SP GRAVITY URINE 1.016; TURBIDITY URINE CLEAR (CLEAR); UROBILINOGEN URINE NORMAL (NORMAL)
[2019-07-24 11:53] LABS: UR EPITHELIAL CELLS <10 /HPF (<10); URINE BACTERIA NEGATIVE /HPF; URINE RBC <10 /HPF (<10); URINE WBC <10 /HPF (<10)
[2019-07-24 11:53] LABS: AGAP 15; ALBUMIN 3.7 g/dL (3.5-5.0); ALKALINE PHOSPHATASE 64 U/L (32-104); BUN 8 mg/dL (8-22); CALCIUM 9.3 mg/dL (8.8-10.2); CHLORIDE 104 mmol/L (98-107); CK PROFILE 74 U/L (24-173); COSMO 277; CREATININE 0.7 mg/dL (0.5-0.9); ESTIMATED GFR > 60; GLUCOSE 125 mg/dL (70-104); GOT 12 U/L (10-30); GPT 9 U/L (10-36); POTASSIUM 3.4 mmol/L (3.5-5.1); SODIUM 139 mmol/L (136-145); TCO2 20 mmol/L (25-35); TOTAL BILIRUBIN < 0.15 mg/dL (0.20-1.00); TOTAL PROTEIN 6.3 g/dL (6.3-8.3)
[2019-07-24 11:54] LABS: INR 0.99; PROTIME 13.6 Seconds (11.0-16.0)
[2019-07-24 11:55] LABS: PTT 25.8 Seconds (22.3-41.8)
[2019-07-24] MEDS ORDERED: LEVAQUIN 500 MG/D5W 500 MG/100 ML IVPB IV SCH (12:30)
--- NOTE | 2019-07-24 12:42 | HISTORY AND PHYSICAL ---
PRIMARY CARE PHYSICIAN: Dr. Pieter Sanchez. CHIEF COMPLAINT: Shortness of breath. HISTORY OF PRESENTING ILLNESS: This is an 79-year-old, female who presented to [facility] ER with complaints of shortness of breath, stating that she had also fallen at home prior to arrival, with no injury. Workup showed white blood cell count to be normal at 7.76. Her D-dimer was 0.75. Chest x-ray showed an ill-defined focal consolidation in the left mid lung zone and possibly the lateral left lung zone. We did obtain a pulmonary arteriogram that showed no evidence of pulmonary embolism but focal airspace consolidation involving the lingula, consistent with pneumonia. She was admitted for further evaluation and treatment. PAST MEDICAL HISTORY: Coronary artery disease, status post stenting, depression, insomnia, nicotine dependence, congestive heart failure. PAST SURGICAL HISTORY: Hysterectomy. FAMILY HISTORY: Reviewed and noncontributory. SOCIAL HISTORY: She currently lives alone. She is a pack a day smoker. Denies any alcohol or illicit drug use. ALLERGIES: She has no known drug allergies. HOME MEDICATIONS: She takes Elavil 25 mg p.o. b.i.d., cilostazol 50 mg p.o. b.i.d., omeprazole 40 mg p.o. daily, Trilafon 2 mg p.o. b.i.d., simvastatin 40 mg p.o. at bedtime, and trazodone 50 mg p.o. at bedtime. LABORATORY DATA: Showed a white blood cell count of 7.76, hemoglobin 13.1, hematocrit 40.2, platelets 267,000. PT and INR of 13.6 and 0.99, with a D-dimer of 0.75. Sodium 138, potassium 3.9, chloride 100, CO2 of 22, BUN of 10, creatinine 0.8, glucose 108. Plasma lactate of 1.8. Chest x-ray showed ill-defined focal consolidation in the left mid lung zone and possibly at the lateral left lung zone. Pulmonary arteriogram showed focal airspace consolidation involving the lingula, consistent with pneumonia, extensive aortic atherosclerotic disease, and no evidence of pulmonary embolism. REVIEW OF SYSTEMS: She denied any fever, chills, blurred vision. She felt lightheaded, some mild dizziness, had a cough, shortness of breath. Did have a fall prior to arriving last night at home but no injury. Denied any chest pain. She has had shortness of breath, worse with exertion. Denied any abdominal pain, constipation, diarrhea, burning or hurting with urination. PHYSICAL EXAMINATION: VITAL SIGNS: On arrival, she had a temperature of 97.7 degrees, pulse 95, respirations 23, blood pressure 132/80, saturating 99% on room air. GENERAL: This is an 79-year-old, female who is lying in the bed and answers questions appropriately. HEENT: Normocephalic, atraumatic. Normal ENT inspection. Oropharynx and nares are clear. Eyes: Pupils are equal, round, and reactive to light and accommodation. Extraocular movements are intact. NECK: Normal inspection. Normal range of motion. LUNGS: Clear to auscultation bilaterally with equal lung expansion and chest wall movement. HEART: Regular rate and rhythm. No murmurs, rubs, or gallops. ABDOMEN: Soft, nontender, nondistended. Bowel sounds are present x4 quadrants. MUSCULOSKELETAL: She has 3/5 strength x4 extremities. NEUROLOGICAL: The cranial nerves 2-12 appear grossly intact. ASSESSMENT: 1. Pneumonia. 2. Elevated D-dimer, ruled out for pulmonary embolism. 3. Fall with no injury. 4. Tobacco abuse. PLAN: She was admitted to the medical unit. Placed on telemetry, O2 per protocol, Solu-Medrol 40 mg IV q.8 and wean as she improves, DuoNeb q.4 hours, Rocephin 1 g IV q.24, and azithromycin 500 IV q.24. Continue home medications as previously identified. Blood cultures x2 are pending. We will recheck a CBC and CMP in the a.m. Further orders after seen by attending. Dictated by LUSI MANUEL Barron for Rainer Keyes MD cc: LUIS MANUEL Barron MD David Francis, MD
[2019-07-24] MEDS: ZOFRAN IV PRN ×2 (16:06→21:46)
[2019-07-24] MEDS ORDERED: ROCEPHIN ONE (17:45)
[2019-07-24] MEDS ORDERED: NS 250 ML ONE (17:58)
[2019-07-24] MEDS ORDERED: ROCEPHIN 1 GM in NS 50 ML IV SCH (18:00)
[2019-07-24] MEDS ORDERED: ZITHROMAX 500 MG/NS 500 MG/250 ML IVPB IV SCH (19:00)
[2019-07-24] MEDS ORDERED: ZOCOR PO SCH (21:00)
[2019-07-24] MEDS ORDERED: DESYREL PO SCH (21:00)
[2019-07-24] MEDS: PLETAL PO SCH (21:59)
[2019-07-24] MEDS: ELAVIL PO SCH (21:59)
[2019-07-24] MEDS: TRILAFON PO SCH (22:00)
[2019-07-25] MEDS: DUONEB (A & A) INH SCH ×3 (04:13→10:55)
[2019-07-25] MEDS: SOLU-MEDROL IV SCH (05:49)
[2019-07-25 06:20] LABS: AGAP 13; ALBUMIN 3.6 g/dL (3.5-5.0); BUN 13 mg/dL (8-22); CALCIUM 9.8 mg/dL (8.8-10.2); CHLORIDE 104 mmol/L (98-107); COSMO 281; CREATININE 0.7 mg/dL (0.5-0.9); ESTIMATED GFR > 60; GLUCOSE 155 mg/dL (70-104); PHOSPHORUS 2.9 mg/dL (2.7-4.5); POTASSIUM 3.7 mmol/L (3.5-5.1); SODIUM 139 mmol/L (136-145); TCO2 22 mmol/L (25-35)
[2019-07-25 06:22] LABS: HEMATOCRIT 33.5 % (37.0-47.0); HEMOGLOBIN 10.4 g/dL (12.0-16.0); IMM GRAN# 0.01 X1000 (0.0-0.04); IMM GRAN% 0.1 % (0.0-0.5); LYMPH# 0.78 X1000 (1.2-3.4); MCH 31.8 PG (27-31); MCV 102.4 FL (81-99); MONO# 0.48 X1000 (0.11-0.59); MONO% 4.9 % (1.7-9.3); MPV 10.8 FL (7.4-10.4); NEUT# 8.52 X1000 (1.4-6.5); PLT 241 X1000 (130-400); RBC 3.27 XMIL (4.2-5.4); RDW 14.2 % (11.5-14.5); WBC 9.79 X1000 (4.8-10.8)
[2019-07-25] MEDS ORDERED: PRILOSEC PO SCH (07:00)
[2019-07-25 08:24] VITALS: BP 92/47
[2019-07-25 08:36] LABS: LYMPHS 10 % (21-51); MONO 3 % (1-9); SEGS 89 % (42-75)
--- NOTE | 2019-07-25 08:59 | Vascular Study Report ---
EXAM: Venous U/S Bilateral Legs HISTORY: elevated d dimer TECHNIQUE: Bilateral lower extremity venous Doppler ultrasound COMPARISON: None. FINDINGS: Right: There is good flow and compressibility in the veins of the right lower extremity. No thrombus. Left: There is good flow and compressibility in the veins of the left lower extremity. No thrombus. IMPRESSION: No deep venous thrombosis. Electronically signed by Dipak Boyce 07/25/2019 8:56 AM
[2019-07-25] MEDS: ELAVIL PO SCH (09:02)
[2019-07-25] MEDS: TRILAFON PO SCH (09:02)
[2019-07-25] MEDS: PLETAL PO SCH (09:02)
--- NOTE | 2019-07-25 14:42 | DISCHARGE SUMMARY ---
ADMISSION DATE: 07/24/2019 DISCHARGE DATE: 07/25/2019 PRIMARY CARE PHYSICIAN: Dr. Pieter Sanchez. ADMISSION DIAGNOSES: 1. Pneumonia. 2. Elevated D-dimer ruled out for pulmonary embolus. 3. A fall with no injury. 4. Tobacco abuse. DISCHARGE DIAGNOSES: 1. Pneumonia. 2. Elevated D-dimer ruled out for pulmonary embolus and deep venous thrombosis. 3. A fall with no injury. 4. Tobacco abuse. SUMMARY OF FINDINGS: This is a 79-year-old female who presented to the ER with complaints of shortness of breath. Also states she had fallen at home with no injury prior to arrival. Her white blood cell count was normal at 7.76. She did have an elevated D-dimer at 0.75. Her chest x- ray showed ill-defined focal consolidation in the left mid lung zone and possibly the lateral left lung zone. We did a pulmonary arteriogram that showed no evidence of pulmonary embolism. It did show the airspace consolidation involving the lingula consistent with pneumonia. She was admitted, placed on IV antibiotics, IV steroids, DuoNeb. We did obtain a bilateral lower extremity venous Doppler that showed no evidence of a DVT. She is much improved today and it is felt that she can safely be discharged home. DISCHARGE MEDICATIONS: Will include DuoNeb q.4 hours p.r.n., Elavil 25 mg p.o. b.i.d., Cilostazol 50 mg p.o. b.i.d., Levaquin 500 mg p.o. daily #7 with no refills, Medrol Dosepak, and omeprazole 40 mg p.o. daily, perphenazine 2 mg p.o. b.i.d., simvastatin 40 mg p.o. at bedtime and trazodone 50 mg p.o. at bedtime. FOLLOWUP: She will need to follow up with primary care physician in 1 to 2 weeks and call the office for an appointment. TIME SPENT AT DISCHARGE: Thirty-five minutes. Dictated by LUIS MANUEL Barron for Rainer Keyes MD Addendum: Patient seen and examined by myself. Agree with LUIS MANUEL note. It reflects my assessment and plan. Patient is being discharged in stable condition . Will be seen by PCP in a week. cc: LUIS MANUEL Barron MD [facility]
== END 2019-07-25 11:35 | disposition home or self-care (01) | DRG 195 ==
LOC: P.ED 17:15 → P.MEDSURG 07-24 06:45 → SUATTDRO 07-24 06:45 → P.MEDSURG 07-24 09:11
PROVIDERS: ADMIT Internal Medicine; ATTEND Internal Medicine